=== PATIENT | male | born 1990 | race Asian ===

== ENCOUNTER 2019-07-01 22:30 | Inpatient (IN) | payer MEDICAID ==
[~2019-07-01] VITALS: Ht 185.4 cm; Wt 82.3 kg
[2019-07-01] MEDS ORDERED: CARB200T5 PO (23:12)
[2019-07-02 00:35] LABS: BASOPHILS % (AUTO) 0.9 % (0.0-2.0); EOSINOPHILS % (AUTO) 5.5 % (1.0-6.0); HEMATOCRIT 41.8 % (41-53); HEMOGLOBIN 12.8 g/dL (13.5-17.5); LYMPHOCYTES # (AUTO) 1.1 K/uL (1.0-4.8); LYMPHOCYTES % (AUTO) 25.4 % (22.0-44.0); MEAN CORPUSCULAR HEMOGLOBIN 25.9 pg (26.0-34.0); MEAN CORPUSCULAR HGB CONC 30.7 G/dL (31.0-37.0); MEAN CORPUSCULAR VOLUME 84 fL (80-100); MONOCYTES # (AUTO) 0.5 K/uL (0.1-1.0); MONOCYTES % (AUTO) 11.2 % (2.0-9.0); NEUTROPHILS # (AUTO) 2.4 K/uL (1.8-7.7); PLATELET COUNT (AUTO) 249 K/uL (150-450); RED BLOOD CELL COUNT(AUTO) 4.96 MIL/uL (4.50-5.90); RED CELL DISTRIBUTION WIDTH 14.7 % (11.5-14.5)
[2019-07-02 00:43] LABS: AMPHET/METH SCREEN,URINE NEGATIVE (NEGATIVE); BARBITURATE SCREEN, URINE NEGATIVE (NEGATIVE); BENZODIAZEPINES SCREEN,URINE NEGATIVE (NEGATIVE); CANNABINOID SCREEN,URINE NEGATIVE (NEGATIVE); COCAINE SCREEN,URINE NEGATIVE (NEGATIVE); METHADONE SCREEN, URINE NEGATIVE (NEGATIVE); OPIATE SCREEN,URINE NEGATIVE (NEGATIVE)
[2019-07-02 00:44] LABS: ANION GAP 9 mmol/L (8-16); CARBON DIOXIDE 28 mmol/L (22-29); CHLORIDE 106 mmol/L (98-107); CREATININE 1.08 mg/dL (0.60-1.30); GLOMERULAR FILTR. RATE CALC > 60 mL/min (>60); GLUCOSE,RANDOM 110 mg/dL (70-110); SODIUM SERUM 143 mmol/L (136-145); UREA NITROGEN, BLOOD 17 mg/dL (7-18)
[2019-07-02 00:45] LABS: PHENCYCLIDINE SCREEN,URINE NEGATIVE (NEGATIVE)
[2019-07-02 00:58] LABS: ALANINE AMINOTRANSFERASE 13 U/L (12-78); ALBUMIN 3.9 g/dL (3.4-5.0); ALKALINE PHOSPHATASE 88 U/L (46-116); ASPARTATE AMINOTRANSFERASE 17 U/L (15-37); BILIRUBIN,TOTAL 0.2 mg/dL (0.1-1.0); TOTAL PROTEIN, SERUM 7.5 g/dL (6.4-8.2)
[2019-07-02] MEDS ORDERED: LORazepam 2 MG TABLET PO PRN (01:00)
[2019-07-02] MEDS ORDERED: ZOLPIDEM TARTRATE 10 MG TABLET PO PRN (01:00)
[2019-07-02] MEDS ORDERED: HALOPERIDOL 5 MG TABLET PO PRN (01:00)
[2019-07-02 04:05] VITALS: BP 132/75
[2019-07-02] MEDS ORDERED: MAGNESIUM HYDROXIDE SUSPENSION 30 ML UDCUP PO PRN ×2 (07:15→12:45)
[2019-07-02] MEDS ORDERED: ONDANSETRON HCL 4 MG TABLET PO PRN ×2 (07:15→12:45)
[2019-07-02] MEDS ORDERED: LOPERAMIDE HCL 2 MG CAPSULE PO PRN ×2 (07:15→12:45)
[2019-07-02] MEDS ORDERED: ACETAMINOPHEN 325 MG TABLET PO PRN ×2 (07:15→12:45)
[2019-07-02] MEDS ORDERED: IBUPROFEN 400 MG TABLET PO PRN ×2 (07:15→12:45)
[2019-07-02] MEDS ORDERED: GuaiFENesin/D-METHORPHAN [SUGAR-FREE] 200-20MG/10 ML SYRUP UDCUP PO PRN ×2 (07:15→12:45)
[2019-07-02] MEDS ORDERED: PETROLATUM,WHITE 28 GM JELLY TP PRN ×2 (07:15→12:45)
[2019-07-02] MEDS ORDERED: DOCUSATE SODIUM 100 MG CAPSULE PO PRN ×2 (07:15→12:45)
[2019-07-02 08:26] VITALS: BP 114/82
[2019-07-02] MEDS ORDERED: CarBAMazepine 200 MG TABLET PO SCH (09:00)
[2019-07-02] MEDS: LamoTRIgine 100 MG TABLET PO SCH ×2 (09:33→17:21)
[2019-07-02] MEDS: FLUoxetine HCL 20 MG CAPSULE PO SCH (10:28)
[2019-07-02] MEDS ORDERED: MAG HYDROX/AL HYDROX/SIMETH ES 30 ML SUSPENSION UDCUP PO PRN (12:45)
[2019-07-02] MEDS ORDERED: CloNIDine HCL 0.1 MG TABLET PO PRN (12:45)
[2019-07-02] MEDS ORDERED: NICOTINE 14 MG/24 HOUR PATCH TD PRN (12:45)
[2019-07-02] MEDS ORDERED: ALBUTEROL SULFATE HFA 90 MCG/PUFF 8 GM INHALER IH PRN (12:45)
[2019-07-02 16:00] VITALS: BP 134/88
[2019-07-02] MEDS: CarBAMazepine 200 MG TABLET PO SCH (17:21)
[2019-07-02] MEDS ORDERED: METHYL SALICYLATE/MENTHOL 85 GM CREAM TP PRN (18:00)
[2019-07-03 05:12] VITALS: BP 113/72
[2019-07-03 08:02] VITALS: BP 139/89
[2019-07-03] MEDS: CarBAMazepine 200 MG TABLET PO SCH ×2 (08:50→16:09)
[2019-07-03] MEDS: FLUoxetine HCL 20 MG CAPSULE PO SCH (08:50)
[2019-07-03] MEDS: LamoTRIgine 100 MG TABLET PO SCH ×2 (08:50→16:09)
[2019-07-03 09:05] LABS: CHOL/HDL RATIO 2.7 (4.2-7.3); FREE T4 (FREE THYROXINE) 0.85 ng/dL (0.76-1.46); THYROID STIMULATING HORMONE 2.98 uIU/mL (0.36-3.74)
[2019-07-03 16:00] VITALS: BP 114/65
[2019-07-04 06:58] VITALS: BP 116/68
[2019-07-04 08:50] VITALS: BP 120/71
[2019-07-04] MEDS: FLUoxetine HCL 20 MG CAPSULE PO SCH (09:00)
[2019-07-04] MEDS: LamoTRIgine 100 MG TABLET PO SCH ×2 (09:06→16:27)
[2019-07-04] MEDS: CarBAMazepine 200 MG TABLET PO SCH ×2 (09:06→16:27)
[2019-07-04] MEDS ORDERED: CARB200T6 PO (12:34)
[2019-07-04] MEDS ORDERED: FLUO-191 PO (12:34)
[2019-07-04] MEDS ORDERED: LAMO100 PO (12:34)
== END 2019-07-04 17:40 | disposition home or self-care (01) | DRG 751 ==
LOC: EMS 22:30 → B3A 07-02 01:13
PROVIDERS: ADMIT Psychiatry & Neurology Child & Adolescent Psychiatry; ATTEND Psychiatry & Neurology Child & Adolescent Psychiatry
DX: F33.2 Major depressive disorder, recurrent severe without psychotic features (principal); R45.851 Suicidal ideations; G40.909 Epilepsy, unspecified, not intractable, without status epilepticus; D64.9 Anemia, unspecified; D72.819 Decreased white blood cell count, unspecified; F41.9 Anxiety disorder, unspecified
CPT/HCPCS: 83036; 84439; 84443; G0480